=== PATIENT | male | born 2000 | race Two or more races ===

== ENCOUNTER 2022-08-05 04:20 | Emergency (ER) | payer MEDICAID ==
[~2022-08-05] VITALS: Ht 167.6 cm; Wt 80.0 kg
[2022-08-05 05:22] LABS: Albumin 4.5 g/dL (3.4-5.0); BUN/Creatinine Ratio 8.6; Bilirubin, Total 0.7 mg/dL (0.2-1.0); Calcium 9.2 mg/dL (8.5-10.1); Potassium 3.4 mmol/L (3.5-5.1); Total Protein 7.4 g/dL (6.4-8.2)
[2022-08-05] MEDS ORDERED: LORazepam 2MG/ML-1ML VIAL IV ONE (06:45)
[2022-08-05] MEDS ORDERED: SODIUM CHLORIDE 0.9% 1,000 ML IV ONE (06:45)
[2022-08-05 06:46] LABS: Urine Bacteria FEW /hpf (None Seen); Urine Blood Negative /uL (Negative); Urine Specific Gravity 1.011 (1.001-1.035); Urine WBC 1 /hpf (0 - 3)
[2022-08-05 07:52] LABS: Basophils # (auto) 0 10 ^3/uL (0-0.2); Basophils % (auto) 0.5 % (0.0-2.0); Eosinophils # (auto) 0.1 10 ^3/uL (0-0.8); Eosinophils % (auto) 1.1 % (0.0-7.0); Hematocrit 47.4 % (41.0-53.0); Hemoglobin 16.9 g/dL (13.5-17.5); Lymphocytes % (auto) 24.9 % (10.0-50.0); Mean Corpuscular Hemoglobin 33.7 pg (28.0-32.0); Mean Corpuscular Hgb Conc. 35.6 g/dL (32.0-36.0); Mean Corpuscular Volume 94.9 fL (80.0-100.0); Monocytes # (auto) 0.9 10 ^3/uL (0-1.3); Monocytes % (auto) 10.9 % (0.0-12.0); Neutrophils % (auto) 62.6 % (37.0-80.0); Nucleated Red Blood Cells % 0.2 %; Red Cell Distribution Width 12.9 % (11.8-14.3); White Blood Cell 7.9 10^3/uL (4.4-10.8)
[2022-08-05 10:00] VITALS: BP 127/82
== END 2022-08-05 10:28 | disposition home or self-care (01) ==
LOC: ER 04:20
DX: R00.0 Tachycardia, unspecified (principal); E86.0 Dehydration; T50.905A Adverse effect of unspecified drugs, medicaments and biological substances, initial encounter; Z88.0 Allergy status to penicillin; Y92.9 Unspecified place or not applicable
CPT/HCPCS: 36415; 71045; 80053; 81001; 84443; 84484; 85025; 93005; 96361; 96374; 99285; J2060; J7030

== ENCOUNTER 2022-10-16 19:55 | Emergency (ER) | payer MEDICAID ==
[~2022-10-16] VITALS: Ht 165.1 cm; Wt 84.0 kg
[2022-10-16 20:25] VITALS: BP 145/78
[2022-10-16] MEDS ORDERED: LORazepam 2MG/ML-1ML VIAL IM ONE (20:30)
[2022-10-16 21:18] LABS: Basophils # (auto) 0 10 ^3/uL (0-0.2); Basophils % (auto) 0.3 % (0.0-2.0); Eosinophils # (auto) 0.1 10 ^3/uL (0-0.8); Eosinophils % (auto) 0.5 % (0.0-7.0); Hematocrit 50.2 % (41.0-53.0); Hemoglobin 17.5 g/dL (13.5-17.5); Lymphocytes % (auto) 13.7 % (10.0-50.0); Mean Corpuscular Hemoglobin 32.9 pg (28.0-32.0); Mean Corpuscular Hgb Conc. 34.9 g/dL (32.0-36.0); Mean Corpuscular Volume 94.4 fL (80.0-100.0); Monocytes # (auto) 1.3 10 ^3/uL (0-1.3); Monocytes % (auto) 8.7 % (0.0-12.0); Neutrophils # (auto) 11.1 10 ^3/uL (1.6-8.6); Neutrophils % (auto) 76.8 % (37.0-80.0); Nucleated Red Blood Cells % 1.7 %; Red Blood Cells 5.32 10^6/uL (4.5-5.90); Red Cell Distribution Width 12.8 % (11.8-14.3); White Blood Cell 14.4 10^3/uL (4.4-10.8)
[2022-10-16 21:39] LABS: Albumin 4.5 g/dL (3.4-5.0); Calcium 9.1 mg/dL (8.5-10.1); Potassium 3.5 mmol/L (3.5-5.1)
[2022-10-16 21:45] LABS: BUN/Creatinine Ratio 15.2 (10.0-20.0); Bilirubin, Total 0.6 mg/dL (0.2-1.0); Total Protein 8.4 g/dL (6.4-8.2)
== END 2022-10-16 21:05 | disposition left against medical advice (07) ==
LOC: ER 19:55
DX: T40.5X5A Adverse effect of cocaine, initial encounter (principal); F41.9 Anxiety disorder, unspecified; R00.2 Palpitations; R00.0 Tachycardia, unspecified; F17.210 Nicotine dependence, cigarettes, uncomplicated; Z88.0 Allergy status to penicillin; Y92.89 Other specified places as the place of occurrence of the external cause
CPT/HCPCS: 36415; 71046; 80053; 83735; 84484; 85025; 93005

== ENCOUNTER 2023-03-01 04:49 | Emergency (ER) | payer MEDICAID ==
[~2023-03-01] VITALS: Ht 167.6 cm; Wt 90.7 kg
[2023-03-01 05:44] LABS: Basophils # (auto) 0 10 ^3/uL (0-0.2); Basophils % (auto) 0.4 % (0.0-2.0); Eosinophils # (auto) 0.1 10 ^3/uL (0-0.8); Eosinophils % (auto) 0.8 % (0.0-7.0); Hematocrit 46.8 % (41.0-53.0); Hemoglobin 16.3 g/dL (13.5-17.5); Lymphocytes # (auto) 1.7 10 ^3/uL (0.4-5.4); Lymphocytes % (auto) 20.4 % (10.0-50.0); Mean Corpuscular Hemoglobin 32.9 pg (28.0-32.0); Mean Corpuscular Hgb Conc. 34.8 g/dL (32.0-36.0); Mean Corpuscular Volume 94.6 fL (80.0-100.0); Monocytes # (auto) 0.7 10 ^3/uL (0-1.3); Monocytes % (auto) 8.6 % (0.0-12.0); Neutrophils # (auto) 5.7 10 ^3/uL (1.6-8.6); Neutrophils % (auto) 69.8 % (37.0-80.0); Nucleated Red Blood Cells % 0.2 %; Red Blood Cells 4.95 10^6/uL (4.5-5.90); Red Cell Distribution Width 12.4 % (11.8-14.3); White Blood Cell 8.2 10^3/uL (4.4-10.8)
[2023-03-01 05:56] LABS: Acetaminophen < 2.0 UG/ML (10.0-20.0); Alanine Aminotransferase 37 U/L (7-40); Albumin 5.4 g/dL (3.2-4.8); Alkaline Phosphatase 95 U/L (46-116); Anion Gap 7 (5-15); Aspartate Aminotransferase 20 U/L (13-40); Blood Urea Nitrogen 11 mg/dL (9-23); Calcium 9.4 mg/dL (8.7-10.4); Carbon Dioxide 25 mmol/L (20-30); Chloride 104 mmol/L (98-107); Glucose 97 mg/dL (74-106); Magnesium 1.9 mg/dL (1.6-2.6); Potassium 3.8 mmol/L (3.5-5.1); Salicylate 11.1 mg/dL (2.8-20.0); Sodium 136 mmol/L (136-145)
[2023-03-01 05:57] LABS: Bilirubin, Total 0.5 mg/dL (0.2-1.0); Total Protein 7.7 g/dL (5.7-8.2)
[2023-03-01 07:34] VITALS: BP 111/60; PULSE 108; RESP 16; TEMP 98.9; O2SAT 98
[2023-03-01 08:14] LABS: Amphetamine Screen, Urine Pos (NEGATIVE)
[2023-03-01 08:15] LABS: Barbiturate Scree,Urine Neg (NEGATIVE); Benzodiazephine Screen, Urine Neg (NEGATIVE); Cannabinoid Screen, Urine Pos (NEGATIVE); Cocaine Screen, Urine Pos (NEGATIVE); Opiate Scree,Urine Neg (NEGATIVE); Phencyclidine Screen, Urine Neg (NEGATIVE)
== END 2023-03-01 10:35 | disposition left against medical advice (07) ==
LOC: ER 04:49 → EDUNIT# 04:49 → EDBD 04:49 → ER 10:35
DX: F41.9 Anxiety disorder, unspecified (principal); R00.2 Palpitations; Z53.21 Procedure and treatment not carried out due to patient leaving prior to being seen by health care provider
CPT/HCPCS: 36415; 80053; 80307; 80320; 80329; 83735; 84484; 85025; 93005

== ENCOUNTER 2023-03-05 01:48 | Emergency (ER) | payer MEDICAID | END 2023-03-05 03:04 | disposition left against medical advice (07) | LOC: ER 01:48 | DX: F19.239 Other psychoactive substance dependence with withdrawal, unspecified (principal); Z53.21 Procedure and treatment not carried out due to patient leaving prior to being seen by health care provider ==

== ENCOUNTER 2023-03-06 04:09 | Emergency (ER) | payer MEDICAID ==
[~2023-03-06] VITALS: Ht 167.6 cm; Wt 91.0 kg
[2023-03-06 04:37] VITALS: BP 128/87; PULSE 92; RESP 17; O2SAT 96
== END 2023-03-06 05:20 | disposition home or self-care (01) ==
LOC: ER 04:09
DX: F41.9 Anxiety disorder, unspecified (principal); F15.10 Other stimulant abuse, uncomplicated; F12.10 Cannabis abuse, uncomplicated; F17.210 Nicotine dependence, cigarettes, uncomplicated

== ENCOUNTER 2023-03-27 09:06 | Emergency (ER) | payer MEDICAID ==
[~2023-03-27] VITALS: Ht 170.2 cm; Wt 94.7 kg
[2023-03-27 09:57] LABS: Amphetamine Screen, Urine Neg (NEGATIVE); Benzodiazephine Screen, Urine Neg (NEGATIVE)
[2023-03-27 09:58] LABS: Barbiturate Scree,Urine Neg (NEGATIVE); Cannabinoid Screen, Urine Neg (NEGATIVE); Cocaine Screen, Urine Neg (NEGATIVE); Opiate Scree,Urine Neg (NEGATIVE); Phencyclidine Screen, Urine Neg (NEGATIVE)
[2023-03-27 10:09] LABS: Basophils # (auto) 0 10 ^3/uL (0-0.2); Basophils % (auto) 0.5 % (0.0-2.0); Eosinophils # (auto) 0.1 10 ^3/uL (0-0.8); Eosinophils % (auto) 1.1 % (0.0-7.0); Hematocrit 42.7 % (41.0-53.0); Hemoglobin 15.1 g/dL (13.5-17.5); Lymphocytes # (auto) 2.3 10 ^3/uL (0.4-5.4); Lymphocytes % (auto) 24.7 % (10.0-50.0); Mean Corpuscular Hemoglobin 33.7 pg (28.0-32.0); Mean Corpuscular Hgb Conc. 35.3 g/dL (32.0-36.0); Mean Corpuscular Volume 95.3 fL (80.0-100.0); Monocytes # (auto) 1.1 10 ^3/uL (0-1.3); Monocytes % (auto) 11.7 % (0.0-12.0); Neutrophils # (auto) 5.7 10 ^3/uL (1.6-8.6); Red Blood Cells 4.48 10^6/uL (4.5-5.90); Red Cell Distribution Width 12.5 % (11.8-14.3); White Blood Cell 9.3 10^3/uL (4.4-10.8)
[2023-03-27 10:34] LABS: Alanine Aminotransferase 33 U/L (7-40); Albumin 4.5 g/dL (3.2-4.8); Alkaline Phosphatase 83 U/L (46-116); Anion Gap 5 (5-15); Aspartate Aminotransferase 16 U/L (13-40); BUN/Creatinine Ratio 13.3 (10.0-20.0); Bilirubin, Total 0.5 mg/dL (0.2-1.0); Blood Urea Nitrogen 12 mg/dL (9-23); Calcium 9.6 mg/dL (8.5-10.1); Carbon Dioxide 30 mmol/L (20-30); Chloride 103 mmol/L (98-107); Glucose 96 mg/dL (74-106); Potassium 3.9 mmol/L (3.5-5.1); Sodium 138 mmol/L (136-145); Total Protein 6.9 g/dL (5.7-8.2)
[2023-03-27 10:36] LABS: Urine Bacteria FEW /hpf (None Seen); Urine WBC 1 /hpf (0 - 3)
[2023-03-27 13:15] LABS: Urine Clarity CLOUDY (Clear); Urine Color Yellow (Yellow)
[2023-03-27 13:16] LABS: Urine Blood Normal /uL (Negative); Urine Protein, UAD Trace (Negative); Urine Specific Gravity 1.025 (1.001-1.035); Urine Urobilinogen Normal (Negative)
[2023-03-27 14:10] VITALS: BP 136/67; PULSE 76; RESP 16; TEMP 98.2; O2SAT 97
== END 2023-03-27 14:13 | disposition home or self-care (01) ==
LOC: ER 09:06
DX: F41.9 Anxiety disorder, unspecified (principal); R07.9 Chest pain, unspecified; F20.9 Schizophrenia, unspecified; Z88.0 Allergy status to penicillin; Z79.899 Other long term (current) drug therapy
CPT/HCPCS: 36415; 71045; 80053; 80307; 81001; 84484; 85025; 93005